=== PATIENT | female | born 1940 | race Caucasian/White ===

== ENCOUNTER 2023-12-29 13:23 | Outpatient (OUT) | payer MEDICARE, SELFPAY ==
--- NOTE | 2023-12-29 14:25 | FL_ITS ---
The [address] [address] Patient Name: CALIXTO POLANCO MRN: [id number] date: 1940 Sex: F Assigned Patient Location: ID Current Patient Location: ID Accession/Order Number: [id number] Exam Date: 12/29/2023 13:55 Report Date: 12/29/2023 15:14 At the request of: NON-STAFF PHYSICIAN Procedure: FL modified barium swallow EXAMINATION: FL modified barium swallow HISTORY: Dysphagia R13.10 COMPARISON: No relevant comparison available. TECHNIQUE: A swallowing evaluation was performed with fluoroscopy in the usual manner. Standard level fluoroscopic mode of operation utilized. Speech pathology was present. The procedure was recorded FINDINGS: ORAL PHASE: Normal deglutition. PHARYNGEAL PHASE: Normal swallowing. ASPIRATION: Single flash of penetration with thin liquids. Otherwise normal. STRUCTURE: Normal. No visible obstruction, stricture, or dilatation. OTHER: Negative. FL/FL modified barium swallow IMPRESSION: Single flash of penetration with thin liquids. Otherwise normal exam Electronically authenticated by: DANK PATEL Date: 12/29/2023 15:14
== END 2023-12-29 13:24 | disposition home or self-care (01) ==
LOC: FL 13:23
DX: R13.10 Dysphagia, unspecified (principal)
CPT/HCPCS: 74230; 92611